=== PATIENT | female | born 1955 | race Caucasian/White ===

== ENCOUNTER 2016-12-02 08:05 | Emergency (ER) | payer SELFPAY ==
--- NOTE | 2016-12-03 12:11 | ER ---
ADMIT: 12/02/2016 RM/LOC: ER [facility] MR#: [id number] [id number] [place], [place] [id number] [place] [address] [place] [address] *CELL Emergency Room Report SEX: F AGE: 61 : 1955 DATE: 12/02/2016 HISTORY OF PRESENT ILLNESS: A 61-year-old female, comes to the Emergency Department with very traumatic pain in the left lower quadrant suprapubic and possibly in her back on the left side times past 3 days. See T-sheet for history and physical. CT of the abdomen is unremarkable. Urine is also unremarkable. KUB reveals a stool. DIAGNOSIS: Abdominal pain. Instructed to follow up with her doctor this coming week if not better. Jacky Turpin MD/ lori JOB #: [id number] CC: Jacky Turpin MD, Attending Physician
== END 2016-12-02 12:20 | disposition home or self-care (01) ==
LOC: ER 08:05
DX: R10.32 Left lower quadrant pain (principal); F17.210 Nicotine dependence, cigarettes, uncomplicated; Z79.899 Other long term (current) drug therapy